=== PATIENT | female | born 1990 | race Two or more races ===

== ENCOUNTER 2019-01-11 22:09 | Emergency (ER) | payer SELFPAY ==
[~2019-01-11] VITALS: Ht 167.6 cm; Wt 65.8 kg
[2019-01-11 22:30] VITALS: BP 146/82
[2019-01-11 22:53] LABS: BASO % 1 % (0-3); EOS # 0.3 x10^3/uL (0.0-0.7); EOS % 4 % (0-3); LYMPH # 2.6 x10^3/uL (1.0-4.8); LYMPH % 40 % (24-48); MEAN CORPUSCULAR HEMOGLOBIN 30 pg (25-35); MEAN CORPUSCULAR HGB CONC 34 g/dL (31-37); MEAN CORPUSCULAR VOLUME 88 fL (79-100); MONO # 0.5 x10^3/uL (0.0-1.1); MONO % 7 % (0-9); NEUT # 3.1 x10^3/uL (1.8-7.7); NEUT % 48 % (31-73); PLATELET COUNT 221 x10^3/uL (140-400); RED BLOOD COUNT 3.75 x10^6/uL (3.50-5.40); RED CELL DISTRIBUTION WIDTH 13.7 % (11.5-14.5); WHITE BLOOD COUNT 6.5 x10^3/uL (4.0-11.0)
[2019-01-11 22:58] LABS: BILIRUBIN,URINE NEGATIVE (NEG); CLARITY,URINE CLEAR; COLOR,URINE YELLOW; NITRITE,URINE NEGATIVE (NEG); PROTEIN,URINE NEGATIVE (NEG-TRACE); UROBILINOGEN,URINE 0.2 mg/dL (0.2 mg/dL)
--- NOTE | 2019-01-11 23:05 | PHYS DOC ---
Adult General Chief Complaint Chief Complaint: VAGINAL BLEEDING HPI HPI Patient is a 28 year old Malay-speaking female 2 para 1 currently 20 weeks who presents to the ED today complaining of abdominal pain described as cramping and intermittent that began this evening. Patient denies anything specifically exacerbating or relieving the pain. She states she was [facility] yesterday and was informed she is 20 weeks . She is also complaining of vaginal bleeding that began with this pain. Denies any nausea or vomiting. Patient seems to grab her abdomen every few minutes due to pain. mentions having intercourse today before symptoms begun Interpretation was provided by and the use of [employer] japanese interpreter (NICKO MIRANDA APRN) Review of Systems Review of Systems Constitutional: Denies fever or chills [] Eyes: Denies change in visual acuity, redness, or eye pain [] HENT: Denies nasal congestion or sore throat [] Respiratory: Denies cough or shortness of breath [] Cardiovascular: No additional information not addressed in HPI [] GI: Reports abdominal pain in with vaginal bleeding, denies nausea, vomiting, bloody stools or diarrhea [] : Denies dysuria or hematuria [] Musculoskeletal: Denies back pain or joint pain [] Integument: Denies rash or skin lesions [] Neurologic: Denies headache, focal weakness or sensory changes [] All other systems were reviewed and found to be within normal limits, except as documented in this note. (NICKO MIRANDA APRN) Current Medications Current Medications Current Medications Medications (Trade) Dose Ordered Sig/Bella Start Time Stop Time Status Last Admin Dose Admin Acetaminophen (Tylenol) 1,000 mg 1X ONCE 01/12/19 00:30 01/12/19 00:48 DC (ENMANUEL GABRIEL MD) Allergies Allergies Allergies Coded Allergies Type Severity Reaction Last Updated Verified No Known Drug Allergies 01/12/19 No (ENMANUEL GABRIEL MD) Physical Exam Physical Exam Constitutional: Well developed, well nourished, no acute distress, non-toxic appearance. [] HENT: Normocephalic, atraumatic, bilateral external ears normal, oropharynx moist, no oral exudates, nose normal. [] Eyes: PERRLA, EOMI, conjunctiva normal, no discharge. [] Neck: Normal range of motion, no tenderness, supple, no stridor. [] Cardiovascular:Heart rate regular rhythm, no murmur [] Lungs & Thorax: Bilateral breath sounds clear to auscultation [] Abdomen: Gravid abdomen. Bowel sounds normal, soft, no tenderness, no masses, no pulsatile masses. [] Pelvic exam External pelvic region appears normal, cervix was visualized, closed, no CMT, trace amount of brownish discharge in the vaginal vault consistent with spotting, no adnexal tenderness. Skin: Warm, dry, no erythema, no rash. [] Back: No tenderness, no CVA tenderness. [] Extremities: No tenderness, no cyanosis, no clubbing, ROM intact, no edema. [] Neurologic: Alert and oriented X 3, normal motor function, normal sensory function, no focal deficits noted. [] Psychologic: Affect normal, judgement normal, mood normal. [] (NICKO MIRANDA APRN) Current Patient Data Vital Signs Vital Signs Date Time Temp Pulse Resp B/P (MAP) Pulse Ox O2 Delivery O2 Flow Rate FiO2 01/11/19 22:30 97.4 91 16 146/82 (103) 100 Room Air 97.4 (ENMANUEL GABRIEL MD) Lab Values Laboratory Tests Test 01/11/19 22:15 01/11/19 22:19 01/11/19 22:37 Urine Collection Type Void Urine Color Yellow Urine Clarity Clear Urine pH 7.0 Urine Specific [place] 1.010 Urine Protein Negative mg/dL (NEG-TRACE) Urine Glucose (UA) Negative mg/dL (NEG) Urine Ketones (Stick) Negative mg/dL (NEG) Urine Blood Moderate (NEG) Urine Nitrite Negative (NEG) Urine Bilirubin Negative (NEG) Urine Urobilinogen Dipstick 0.2 mg/dL (0.2 mg/dL) Urine Leukocyte Esterase Negative (NEG) Urine RBC 0 /HPF (0-2) Urine WBC Rare /HPF (0-4) Urine Squamous Epithelial Cells Few /LPF Urine Bacteria Few /HPF (0-FEW) Urine Opiates Screen Neg (NEG) Urine Methadone Screen Neg (NEG) Urine Barbiturates Neg (NEG) Urine Phencyclidine Screen Neg (NEG) Urine Amphetamine/Methamphetamine Neg (NEG) Urine Benzodiazepines Screen Neg (NEG) Urine Cocaine Screen Neg (NEG) Urine Cannabinoids Screen Neg (NEG) Urine Ethyl Alcohol Neg (NEG) POC Urine HCG, Qualitative Hcg positive (Negative) White Blood Count 6.5 x10^3/uL (4.0-11.0) Red Blood Count 3.75 x10^6/uL (3.50-5.40) Hemoglobin 11.0 g/dL (12.0-15.5) L Hematocrit 33.0 % (36.0-47.0) L Mean Corpuscular Volume 88 fL (79-100) Mean Corpuscular Hemoglobin 30 pg (25-35) Mean Corpuscular Hemoglobin Concent 34 g/dL (31-37) Red Cell Distribution Width 13.7 % (11.5-14.5) Platelet Count 221 x10^3/uL (140-400) Neutrophils (%) (Auto) 48 % (31-73) Lymphocytes (%) (Auto) 40 % (24-48) Monocytes (%) (Auto) 7 % (0-9) Eosinophils (%) (Auto) 4 % (0-3) H Basophils (%) (Auto) 1 % (0-3) Neutrophils # (Auto) 3.1 x10^3/uL (1.8-7.7) Lymphocytes # (Auto) 2.6 x10^3/uL (1.0-4.8) Monocytes # (Auto) 0.5 x10^3/uL (0.0-1.1) Eosinophils # (Auto) 0.3 x10^3/uL (0.0-0.7) Basophils # (Auto) 0.0 x10^3/uL (0.0-0.2) Maternal Serum HCG Beta Subunit 68421 mIU/mL (0-5) H Sodium Level 138 mmol/L (136-145) Potassium Level 3.4 mmol/L (3.5-5.1) L Chloride Level 104 mmol/L (98-107) Carbon Dioxide Level 26 mmol/L (21-32) Anion Gap 8 (6-14) Blood Urea Nitrogen 7 mg/dL (7-20) Creatinine 0.8 mg/dL (0.6-1.0) Estimated GFR (Cockcroft-Gault) 84.8 BUN/Creatinine Ratio 9 (6-20) Glucose Level 76 mg/dL (70-99) Calcium Level 8.8 mg/dL (8.5-10.1) Total Bilirubin 0.1 mg/dL (0.2-1.0) L Aspartate Amino Transferase (AST) 16 U/L (15-37) Alanine Aminotransferase (ALT) 27 U/L (14-59) Alkaline Phosphatase 70 U/L (46-116) Total Protein 7.3 g/dL (6.4-8.2) Albumin 3.4 g/dL (3.4-5.0) Albumin/Globulin Ratio 0.9 (1.0-1.7) L Ethyl Alcohol Level < 10 mg/dL (0-10) Laboratory Tests 01/11/19 22:37 Laboratory Tests 01/11/19 22:37 Microbiology 01/11/19 Wet Prep - Final, Complete (ENMANUEL GABRIEL MD) EKG EKG [] (NICKO MIRANDA APRN) Radiology/Procedures Radiology/Procedures []PROCEDURE: OB > 14 WKS W/TV Limited OB ultrasound greater than 14 weeks to include transabdominal and transvaginal imaging 01/11/2019 CLINICAL HISTORY: Second trimester with abdominal pain. TECHNIQUE: A limited real-time ultrasound examination of the gravid uterus was performed. Additional a transvaginal imaging evaluation of the cervix was performed. Multiple images were obtained. FINDINGS: There is a single living IUP. The fetus is in a variable position. cardiac and somatic activity is seen. heart rate is 157 beats per minutes. The CRL of the pole measures 8.95 cm. This corresponds to an estimated gestational age by ultrasound of 14 weeks 6 days plus or minus standard deviation of 8 days. The maternal cervix is closed. It measures 3.85 cm. The placenta is posterior. No definite abnormality of the placenta is seen. The amniotic fluid volume is within normal limits. The right ovary is normal in size and echogenicity. It measures 2.1 x 1.1 x 2.0 cm in size. The left ovary is not visualized. No adnexal mass is seen. No free fluid is noted. Detailed evaluation of anatomy was not performed due to the early age of this gestation. IMPRESSION: Single living IUP with an estimated gestational age by ultrasound of 14 weeks 6 days plus or minus a standard deviation of 8 days. Electronically signed by: Roni Escobedo MD (01/12/2019 12:10 AM) [facility] DICTATED and SIGNED BY: RONI ESCOBEDO MD DATE: 01/12/19 0010 (NICKO MIRANDA APRN) Course & Med Decision Making Course & Med Decision Making Pertinent Labs and Imaging studies reviewed. (See chart for details) This is a 28-year-old female patient 2 para 1 currently 20 weeks presenting today with abdominal pain and vaginal bleeding that began this afternoon. On physical exam trace amount of spotting was noted. CBC with normal WBC, hemoglobin 11.0, hematocrit 33.0, CMP-no acute findings, urine analysis is negative for infection, beta-hCG 28,838. Blood group O+ Wet prep noted for clue cells-D/c on Flagy OB ultrasound noted for Single living IUP with an estimated gestational age by ultrasound of 14 weeks 6 days plus or minus a standard deviation of 8 days. Patient was discharged home, instructed to maintain bed rest and pelvic rest. Instructed to return to the ED at any point symptoms worsen. Tylenol recommended for pain. Follow-up with her own ESTATE ATTORNEY on the provided ESTATE ATTORNEY in the course of next week (NICKO MIRANDA APRN) Course & Med Decision Making Staff Physician Addendum: I was working in the ER during the course of this patient's visit. I was available for consultation as needed, but I was not directly involved in the care of this patient. (ENMANUEL GABRIEL MD) Dragon Disclaimer Dragon Disclaimer This electronic medical record was generated, in whole or in part, using a voice recognition dictation system. (NICKO MIRANDA APRN) Departure Departure Impression: Primary Impression: Abdominal pain in Additional Impressions: Threatened miscarriage Bacterial vaginosis Disposition: 01 HOME, SELF-CARE Condition: STABLE Referrals: GENEVIEVE DHALIWAL MD Follow up with the provided ESTATE ATTORNEY or your own ESTATE ATTORNEY next week Patient Instructions: Bacterial Vaginosis, [id number], Threatened Miscarriage Additional Instructions: You were evaluated in the emergency room for abdominal pain and vaginal bleeding in . Your ultrasound shows you're 14 weeks 6 days . You have bacterial vaginosis, we put you on antibiotics for this, ensure you complete them. Maintain bedrest, no sex, no strenuous activities until you're seen by your own doctor or the provided ESTATE ATTORNEY in the course of next week, come back to the ED today point symptoms worsen. Scripts Metronidazole (FLAGYL) 500 Mg Tablet 1 TAB PO BID, #14 TAB Prov: NICKO MIRANDA APRN 01/12/19 Problem Qualifiers Primary Impression: Abdominal pain in Trimester: second trimester Qualified Codes: O26.892 - Other specified related conditions, second trimester; R10.9 - Unspecified abdominal pain NICKO MIRANDA APRN Jan 11, 2019 23:05 ENMANUEL GABRIEL MD Jan 13, 2019 05:27
[2019-01-11 23:12] LABS: CALCIUM 8.8 mg/dL (8.5-10.1); CREATININE 0.8 mg/dL (0.6-1.0); GFR 84.8; POTASSIUM 3.4 mmol/L (3.5-5.1)
[2019-01-11 23:17] LABS: ALBUMIN 3.4 g/dL (3.4-5.0); ALBUMIN/GLOBULIN RATIO 0.9 (1.0-1.7); TOTAL BILIRUBIN 0.1 mg/dL (0.2-1.0); TOTAL PROTEIN 7.3 g/dL (6.4-8.2)
[2019-01-11 23:18] LABS: BACTERIA,URINE FEW /HPF (0-FEW); RBC,URINE 0 /HPF (0-2); SQUAMOUS EPITHELIAL CELL,UR FEW /LPF; WBC,URINE RARE /HPF (0-4)
[2019-01-11 23:32] LABS: AMPHETAMINE/METHAMPHETAMINE NEG (NEG); BARBITURATES NEG (NEG); BENZODIAZEPINES NEG (NEG); CANNABINOIDS NEG (NEG); COCAINE NEG (NEG); METHADONE NEG (NEG); OPIATES NEG (NEG); PHENCYCLIDINE NEG (NEG)
--- NOTE | 2019-01-12 00:13 | RAD ---
Limited OB ultrasound greater than 14 weeks to include transabdominal and transvaginal imaging 01/11/2019 CLINICAL HISTORY: Second trimester with abdominal pain. TECHNIQUE: A limited real-time ultrasound examination of the gravid uterus was performed. Additional a transvaginal imaging evaluation of the cervix was performed. Multiple images were obtained. FINDINGS: There is a single living IUP. The fetus is in a variable position. cardiac and somatic activity is seen. heart rate is 157 beats per minutes. The CRL of the pole measures 8.95 cm. This corresponds to an estimated gestational age by ultrasound of 14 weeks 6 days plus or minus standard deviation of 8 days. The maternal cervix is closed. It measures 3.85 cm. The placenta is posterior. No definite abnormality of the placenta is seen. The amniotic fluid volume is within normal limits. The right ovary is normal in size and echogenicity. It measures 2.1 x 1.1 x 2.0 cm in size. The left ovary is not visualized. No adnexal mass is seen. No free fluid is noted. Detailed evaluation of anatomy was not performed due to the early age of this gestation. IMPRESSION: Single living IUP with an estimated gestational age by ultrasound of 14 weeks 6 days plus or minus a standard deviation of 8 days. Electronically signed by: Rnoi Escobedo MD (01/12/2019 12:10 AM) [facility]
[2019-01-12] MEDS ORDERED: METR500T PO (00:20)
[2019-01-12] MEDS ORDERED: ACETAMINOPHEN 500 MG TABLET PO ONE (00:30)
[2019-01-15 17:13] LABS: GC PROBE Negative (Negative)
== END 2019-01-12 00:37 | disposition home or self-care (01) ==
LOC: ER 01-12 00:01
DX: O20.0 Threatened abortion (principal); O23.592 Infection of other part of genital tract in pregnancy, second trimester; B96.89 Other specified bacterial agents as the cause of diseases classified elsewhere; R10.9 Unspecified abdominal pain; Z3A.14 14 weeks gestation of pregnancy
CPT/HCPCS: 76805; 76817; 80053; 80307; 81001; 81025; 84702; 85025; 86850; 86900; 86901; 87491; 87591; 99285; G0480; Q0111; 36415

== ENCOUNTER 2019-07-05 09:39 | Observation (INO) | payer SELFPAY ==
[~2019-07-05] VITALS: Ht 160 cm; Wt 95.7 kg
[~2019-07-05 09:39] MED LIST: METR500T PO
[2019-07-05] MEDS ORDERED: IV RINGERS,LACTATED 1000ML 1,000 ML IV SCH (10:02)
[2019-07-05 10:32] LABS: BILIRUBIN,URINE NEGATIVE (NEG); CLARITY,URINE CLEAR; COLOR,URINE YELLOW; NITRITE,URINE NEGATIVE (NEG); PH,URINE 6.5; PROTEIN,URINE NEGATIVE (NEG-TRACE); UROBILINOGEN,URINE 0.2 mg/dL (0.2 mg/dL)
[2019-07-05 10:33] LABS: BACTERIA,URINE MANY /HPF (0-FEW); RBC,URINE OCC /HPF (0-2); SQUAMOUS EPITHELIAL CELL,UR MOD /LPF
== END 2019-07-05 15:24 | disposition home or self-care (01) ==
LOC: 3 SO LND 09:39
PROVIDERS: ADMIT Obstetrics & Gynecology; ATTEND Obstetrics & Gynecology
DX: O26.893 Other specified pregnancy related conditions, third trimester (principal); R10.30 Lower abdominal pain, unspecified; Z3A.38 38 weeks gestation of pregnancy
CPT/HCPCS: 81001; 87086; G0378; G0379; J7120

== ENCOUNTER 2019-07-08 06:37 | Inpatient (IN) | payer SELFPAY ==
[~2019-07-08] VITALS: Ht 160 cm; Wt 96.8 kg
[2019-07-08] MEDS ORDERED: CITRIC ACID/SODIUM CITRATE 30 ML SOLUTION. PO ONE (07:00)
[2019-07-08] MEDS ORDERED: IV RINGERS,LACTATED 1000ML 1,000 ML IV SCH (07:00)
[2019-07-08 07:55] LABS: BASO % 0 % (0-3); EOS # 0.1 x10^3/uL (0.0-0.7); EOS % 2 % (0-3); HEMATOCRIT 33.7 % (36.0-47.0); HEMOGLOBIN 11.2 g/dL (12.0-15.5); LYMPH # 1.9 x10^3/uL (1.0-4.8); LYMPH % 36 % (24-48); MEAN CORPUSCULAR HEMOGLOBIN 28 pg (25-35); MEAN CORPUSCULAR HGB CONC 33 g/dL (31-37); MEAN CORPUSCULAR VOLUME 85 fL (79-100); MONO # 0.3 x10^3/uL (0.0-1.1); MONO % 6 % (0-9); NEUT % 56 % (31-73); PLATELET COUNT 240 x10^3/uL (140-400); RED BLOOD COUNT 3.98 x10^6/uL (3.50-5.40); RED CELL DISTRIBUTION WIDTH 13.5 % (11.5-14.5); WHITE BLOOD COUNT 5.4 x10^3/uL (4.0-11.0)
[2019-07-08 08:40] VITALS: BP 117/73
[2019-07-08] MEDS: IV RINGERS,LACTATED 1000ML 1,000 ML IV SCH ×2 (08:50→17:19)
[2019-07-08] MEDS ORDERED: ePHEDrine PF IN SALINE 50 MG/10 ML SYRINGE. IV ONE (09:47)
[2019-07-08] MEDS ORDERED: PHENYLEPHRINE in 0.9% NACL PF 1 MG/10 ML SYRINGE. IV ONE (09:47)
[2019-07-08] MEDS ORDERED: OXYTOCIN 10 UNIT/ML VIAL. ONE (09:47)
[2019-07-08] MEDS ORDERED: METOCLOPRAMIDE HCL 10 MG/2 ML VIAL. ONE (09:48)
[2019-07-08] MEDS ORDERED: ONDANSETRON PF 4 MG/2 ML VIAL. ONE (09:48)
[2019-07-08] MEDS ORDERED: FAMOTIDINE 20 MG/2 ML VIAL ONE (09:48)
[2019-07-08] MEDS ORDERED: fentaNYL PF VIAL 100 MCG/2 ML VIAL ONE (09:49)
[2019-07-08] MEDS ORDERED: MORPHINE PF 10 MG/10 ML AMPUL. ONE (09:49)
[2019-07-08 10:59] LABS: BILIRUBIN,URINE NEGATIVE (NEG); COLOR,URINE YELLOW; NITRITE,URINE NEGATIVE (NEG); PH,URINE 6.5; PROTEIN,URINE NEGATIVE (NEG-TRACE); UROBILINOGEN,URINE 0.2 mg/dL (0.2 mg/dL)
[2019-07-08 11:11] LABS: BACTERIA,URINE MANY /HPF (0-FEW); CLARITY,URINE HAZY; SQUAMOUS EPITHELIAL CELL,UR MANY /LPF
[2019-07-08 11:12] LABS: RBC,URINE RARE /HPF (0-2)
--- NOTE | 2019-07-08 12:12 | PDOC1 ---
OB - History Hx of Present Care: Good Care Ultrasounds: Normal mid trimester US Obstetrical Complications: None Medical Complications: None Past Family/Social History * Past Medical, Surgical, Family and Obstetric Histories reviewed from chart. Rubella: Immune RPR/VDRL: Negative GBS Status: Negative HBsAG: Negative OB - Chief Complaint & HPI Date of Admission: Date of Admission: Jul 08, 2019 at 06:37 Chief Complaint/History : 2 Para: 1 EGA: 39 Reason for admission: section Indication for : desires repeat Admission Nurse Assessment Rev: Yes OB - Admission Exam Physical Exam Vitals: VS - Last 72 Hours, by Label Date Time Temp Pulse Resp B/P (MAP) Pulse Ox O2 Delivery O2 Flow Rate FiO2 07/08/19 08:40 97.7 83 16 117/73 (88) Room Air 97.7 HEENT: Normal Heart: Regular Rate Lungs: Clear Abdomen: Gravid, Non tender, Soft Extremities: Edema Reflexes: Normal Cervical Dilatation: Fingertip Effacement: 25% Station: -3 Membranes: Intact Heart Rate: Normal Accelerations: Accelerations Present Decelerations: No decelerations Contractions on Admission: >10 Minutes Apart Intensity: Mild Text A: 39 wks IUP Previous c/s P: Admit for repeat c/s. JOVANY BEARD Jr, MD Jul 08, 2019 12:12
--- NOTE | 2019-07-08 12:25 | PDOC4 ---
OB Operative Note Date: Jul 08, 2019 PRE OP DIAGNOSIS: Previoujs C- section POST OP DIAGNOSIS: Previous C- section OPERATION PERFORMED: R [facility] Surgeon Dr. Lowe Anesthesia: Regional (Spinal) Blood Loss 600 ml Specimen placenta and OB Findings: Position (Vertex), Sex (Female), (8/9), Weight (3085 Gram), Fluid (Meconium) Complications none Additional Remarks pt. stable JOVANY LOWE Jr, MD Jul 08, 2019 12:25
[2019-07-08] MEDS ORDERED: miSOPROStol 200 MCG TABLET ONE (12:26)
[2019-07-08] MEDS ORDERED: OXYTOCIN 30 UNIT/500 ML PREMIX 500 ML IV PRN (12:30)
[2019-07-08] MEDS ORDERED: 0.9 % SODIUM CHLORIDE 10 ML DISP.SYRIN. IV PRN (12:30)
[2019-07-08] MEDS ORDERED: diphenhydrAMINE ORAL ELIXIR 12.5 MG/5 ML ML PO PRN (12:30)
[2019-07-08] MEDS ORDERED: ZOLPIDEM 5 MG TABLET. PO PRN (12:30)
[2019-07-08] MEDS ORDERED: MAG HYDROX/ALUMINUM HYD/SIMETH 30 ML ORAL.SUSP PO PRN (12:30)
[2019-07-08] MEDS ORDERED: ONDANSETRON PF 4 MG/2 ML VIAL. IV PRN (12:30)
--- NOTE | 2019-07-08 13:00 | OP ---
DATE OF SURGERY: 07/08/2019 PREOPERATIVE DIAGNOSES: 1. A 39 weeks intrauterine . 2. Previous section. POSTOPERATIVE DIAGNOSES: 1. A 39 weeks intrauterine . 2. Previous section. PROCEDURE: Repeat low transverse section. SURGEON: Jovany Lowe MD ANESTHESIA: Spinal. ESTIMATED BLOOD LOSS: 600 mL. COMPLICATIONS: None. FINDINGS: Viable female , Apgars 8 and 9, weight 3085 grams. Three-vessel cord placenta delivered manually. Light meconium stained amniotic fluid. SUMMARY: A 29-year-old 2, para 1 at 39 weeks, presented for repeat section. She was counseled on the risks, benefits and expectations and voiced a clear understanding to proceed. DESCRIPTION OF PROCEDURE: The patient was taken to surgery suite and placed in dorsal supine position. She was prepped with ChloraPrep and draped in sterile fashion. After adequate anesthesia, Pfannenstiel skin incision was made with scalpel down to and through the fascia. Fascia was extended laterally using curved Smiley scissors. The superior edge of the fascia was grasped with 2 Merly clamps and dissected free of the abdominal rectus muscles using blunt dissection along with Bovie cautery. The same process took place inferiorly. The abdominal rectus muscles were dissected bluntly at the midline using blunt dissection. Two hemostats were placed on the peritoneum. The peritoneum was incised with Metzenbaum scissors. This excision was extended superiorly as well as inferiorly. The Jaziel ring retractor was placed. A low transverse hysterotomy incision was made down to the amniotic sac. Hysterotomy incision was extended laterally and vertically digitally. Amniotomy was performed with Allis clamp, which elicited a moderate amount of meconium stained amniotic fluid. With the aid of fundal pressure, the infant's head was delivered in a smooth atraumatic manner. With additional fundal pressure, the anterior shoulder was delivered followed by posterior shoulder and rest of female infant was delivered. The infant was suctioned with bulb syringe orally and nasally, umbilical cord was clamped twice and cut and viable female infant was handed to waiting nursing staff. Umbilical cord blood was then obtained. Three-vessel cord placenta was delivered manually. The uterus was then exteriorized and cleared of clot and debris with a moist lap. The hysterotomy incision was reapproximated using #1 Vicryl suture in running locked fashion and imbricated layer of #1 Vicryl suture in a running fashion was utilized for better hemostasis. Uterus palpated firm. Fallopian tubes and ovaries appeared normal bilaterally. Posterior cul-de-sac was cleared of clot and debris with moist lap. The uterus was then returned to the abdomen. Pericolic gutters were cleared of clot and debris with a moist lap. The hysterotomy incision was reviewed and was hemostatic. The Jaziel ring retractor was removed. The peritoneum was reapproximated using #1 Vicryl suture in a running fashion. The abdominal rectus muscles were reapproximated using #1 Vicryl suture in an interrupted fashion. Fascia was reapproximated using Stratafix in running fashion. Skin was reapproximated using 4-0 Vicryl suture in subcuticular manner. The patient tolerated the procedure well and was taken to recovery room in stable condition. Sponge and needle count correct x 3. JOVANY LOWE MD DR: ARETHA/juan JOB#: [id number] / [id number]
[2019-07-08] MEDS ORDERED: diphenhydrAMINE 50 MG/ML VIAL IVP PRN (13:15)
[2019-07-08] MEDS: KETOROLAC 30 MG/ML VIAL. IV PRN ×2 (14:44→20:51)
[2019-07-08 16:23] VITALS: BP 106/60
[2019-07-08] MEDS: FERROUS SULFATE 325 MG TABLET. PO SCH (17:00)
[2019-07-08 17:10] VITALS: BP 112/58
[2019-07-08] MEDS ORDERED: KETOROLAC 30 MG/ML VIAL. IV PRN (18:45)
[2019-07-08] MEDS: DOCUSATE SODIUM 100 MG CAPSULE. PO PRN (20:51)
[2019-07-08 21:19] VITALS: BP 103/55
[2019-07-09] MEDS: IV RINGERS,LACTATED 1000ML 1,000 ML IV SCH ×4 (01:29→23:00)
[2019-07-09 01:30] VITALS: BP 86/67
[2019-07-09] MEDS: KETOROLAC 30 MG/ML VIAL. IV PRN (04:52)
[2019-07-09 05:08] LABS: BASO % 0 % (0-3); EOS # 0.1 x10^3/uL (0.0-0.7); EOS % 2 % (0-3); HEMATOCRIT 28.3 % (36.0-47.0); HEMOGLOBIN 9.4 g/dL (12.0-15.5); LYMPH # 1.7 x10^3/uL (1.0-4.8); LYMPH % 28 % (24-48); MEAN CORPUSCULAR HEMOGLOBIN 28 pg (25-35); MEAN CORPUSCULAR HGB CONC 33 g/dL (31-37); MEAN CORPUSCULAR VOLUME 86 fL (79-100); MONO # 0.4 x10^3/uL (0.0-1.1); MONO % 7 % (0-9); NEUT # 3.8 x10^3/uL (1.8-7.7); NEUT % 63 % (31-73); PLATELET COUNT 200 x10^3/uL (140-400); RED BLOOD COUNT 3.31 x10^6/uL (3.50-5.40)
[2019-07-09 05:50] VITALS: BP 104/59
[2019-07-09] MEDS: FERROUS SULFATE 325 MG TABLET. PO SCH ×2 (07:11→17:43)
[2019-07-09] MEDS: SIMETHICONE 80 MG TAB.CHEW PO PRN ×2 (07:11→17:43)
[2019-07-09] MEDS: DOCUSATE SODIUM 100 MG CAPSULE. PO PRN ×2 (07:11→17:43)
[2019-07-09] MEDS: oxyCODONE/APAP 5/325 1 TAB TABLET PO PRN ×3 (07:12→17:43)
--- NOTE | 2019-07-09 07:36 | PDOC ---
OB Progress Note Date of Service 07/09/19 Time of Evaluation 0735 Notes Pt. feeling well. Pain controlled. No complaints. Lab Laboratory Tests Test 07/08/19 07:16 07/08/19 07:25 07/09/19 04:50 Urine Collection Type Unknown Urine Color Yellow Urine Clarity Hazy Urine pH 6.5 Urine Specific [place] 1.010 Urine Protein Negative mg/dL (NEG-TRACE) Urine Glucose (UA) Negative mg/dL (NEG) Urine Ketones (Stick) Negative mg/dL (NEG) Urine Blood Negative (NEG) Urine Nitrite Negative (NEG) Urine Bilirubin Negative (NEG) Urine Urobilinogen Dipstick 0.2 mg/dL (0.2 mg/dL) Urine Leukocyte Esterase Moderate (NEG) Urine RBC Rare /HPF (0-2) Urine WBC 11-20 /HPF (0-4) Urine Squamous Epithelial Cells Many /LPF Urine Bacteria Many /HPF (0-FEW) White Blood Count 5.4 x10^3/uL (4.0-11.0) 6.0 x10^3/uL (4.0-11.0) Red Blood Count 3.98 x10^6/uL (3.50-5.40) 3.31 x10^6/uL (3.50-5.40) Hemoglobin 11.2 g/dL (12.0-15.5) 9.4 g/dL (12.0-15.5) Hematocrit 33.7 % (36.0-47.0) 28.3 % (36.0-47.0) Mean Corpuscular Volume 85 fL (79-100) 86 fL (79-100) Mean Corpuscular Hemoglobin 28 pg (25-35) 28 pg (25-35) Mean Corpuscular Hemoglobin Concent 33 g/dL (31-37) 33 g/dL (31-37) Red Cell Distribution Width 13.5 % (11.5-14.5) 14.0 % (11.5-14.5) Platelet Count 240 x10^3/uL (140-400) 200 x10^3/uL (140-400) Neutrophils (%) (Auto) 56 % (31-73) 63 % (31-73) Lymphocytes (%) (Auto) 36 % (24-48) 28 % (24-48) Monocytes (%) (Auto) 6 % (0-9) 7 % (0-9) Eosinophils (%) (Auto) 2 % (0-3) 2 % (0-3) Basophils (%) (Auto) 0 % (0-3) 0 % (0-3) Neutrophils # (Auto) 3.0 x10^3/uL (1.8-7.7) 3.8 x10^3/uL (1.8-7.7) Lymphocytes # (Auto) 1.9 x10^3/uL (1.0-4.8) 1.7 x10^3/uL (1.0-4.8) Monocytes # (Auto) 0.3 x10^3/uL (0.0-1.1) 0.4 x10^3/uL (0.0-1.1) Eosinophils # (Auto) 0.1 x10^3/uL (0.0-0.7) 0.1 x10^3/uL (0.0-0.7) Basophils # (Auto) 0.0 x10^3/uL (0.0-0.2) 0.0 x10^3/uL (0.0-0.2) Treponema pallidum Antibody Nonreactive (Nonreactive) Laboratory Tests Test 07/09/19 04:50 White Blood Count 6.0 x10^3/uL (4.0-11.0) Red Blood Count 3.31 x10^6/uL (3.50-5.40) Hemoglobin 9.4 g/dL (12.0-15.5) Hematocrit 28.3 % (36.0-47.0) Mean Corpuscular Volume 86 fL (79-100) Mean Corpuscular Hemoglobin 28 pg (25-35) Mean Corpuscular Hemoglobin Concent 33 g/dL (31-37) Red Cell Distribution Width 14.0 % (11.5-14.5) Platelet Count 200 x10^3/uL (140-400) Neutrophils (%) (Auto) 63 % (31-73) Lymphocytes (%) (Auto) 28 % (24-48) Monocytes (%) (Auto) 7 % (0-9) Eosinophils (%) (Auto) 2 % (0-3) Basophils (%) (Auto) 0 % (0-3) Neutrophils # (Auto) 3.8 x10^3/uL (1.8-7.7) Lymphocytes # (Auto) 1.7 x10^3/uL (1.0-4.8) Monocytes # (Auto) 0.4 x10^3/uL (0.0-1.1) Eosinophils # (Auto) 0.1 x10^3/uL (0.0-0.7) Basophils # (Auto) 0.0 x10^3/uL (0.0-0.2) Medications Current Medications Ringer's Solution 1,000 ml @ 1,000 mls/hr Q1H IV Last administered on 07/08/19at 08:49; Start 07/08/19 at 07:00; Stop 07/08/19 at 07:59; Status DC Ringer's Solution 1,000 ml @ 125 mls/hr Q8H IV Last administered on 07/09/19at 01:29; Start 07/08/19 at 07:00 Cefazolin Sodium/ Dextrose 50 ml @ 100 mls/hr 1X ONCE IV Last administered on 07/08/19at 08:49; Start 07/08/19 at 07:00; Stop 07/08/19 at 16:42; Status DC Citric Acid/ Sodium Citrate (Bicitra) 30 ml 1X ONCE PO Last administered on 07/08/19at 08:49; Start 07/08/19 at 07:00; Stop 07/08/19 at 16:43; Status DC Ephedrine Sulfate (ePHEDrine PF IN SALINE SYRINGE) 50 mg STK-MED ONCE IV ; Start 07/08/19 at 09:47; Stop 07/08/19 at 09:48; Status DC Phenylephrine HCl (PHENYLEPHRINE in 0.9% NACL PF) 1 mg STK-MED ONCE IV ; Start 07/08/19 at 09:47; Stop 07/08/19 at 09:48; Status DC Oxytocin (Pitocin) 10 unit STK-MED ONCE .ROUTE ; Start 07/08/19 at 09:47; Stop 07/08/19 at 09:48; Status DC Ondansetron HCl (Zofran) 4 mg STK-MED ONCE .ROUTE ; Start 07/08/19 at 09:48; Stop 07/08/19 at 09:49; Status DC Famotidine (Pepcid Vial) 20 mg STK-MED ONCE .ROUTE ; Start 07/08/19 at 09:48; Stop 07/08/19 at 09:49; Status DC Metoclopramide HCl (Reglan Vial) 10 mg STK-MED ONCE .ROUTE ; Start 07/08/19 at 09:48; Stop 07/08/19 at 09:49; Status DC Morphine Sulfate (Morphine Preservative Free) 10 mg STK-MED ONCE .ROUTE ; Start 07/08/19 at 09:49; Stop 07/08/19 at 09:49; Status DC Fentanyl Citrate (Fentanyl 2ml Vial) 100 mcg STK-MED ONCE .ROUTE ; Start 07/08/19 at 09:49; Stop 07/08/19 at 09:49; Status DC Sodium Chloride (Normal Saline Flush) 3 ml QSHIFT PRN IV AFTER MEDS AND BLOOD DRAWS; Start 07/08/19 at 12:30 Oxytocin/Sodium Chloride 500 ml @ 125 mls/hr CONT PRN IV EXCESSIVE POST- BLEEDING; Start 07/08/19 at 12:30; Stop 07/08/19 at 20:29; Status DC Ibuprofen (Motrin) 800 mg PRN Q8HRS PRN PO INFLAMMATION; Start 07/08/19 at 12:30 Ondansetron HCl (Zofran) 4 mg PRN Q6HRS PRN IV NAUSEA/VOMITING; Start 07/08/19 at 12:30 Docusate Sodium (Colace) 100 mg PRN BID PRN PO CONSTIPATION Last administered on 07/09/19at 07:11; Start 07/08/19 at 12:30 Al Hydroxide/Mg Hydroxide (Mylanta Plus Xs) 30 ml PRN Q4HRS PRN PO HEARTBURN / GAS; Start 07/08/19 at 12:30 Simethicone (Gas-X) 80 mg PRN AFTMEALHC PRN PO GAS / BLOATING Last administered on 07/09/19at 07:11; Start 07/08/19 at 12:30 Diphenhydramine HCl (Benadryl Oral Elixir) 12.5 mg PRN Q6HRS PRN PO ITCHING Last administered on 07/08/19at 20:51; Start 07/08/19 at 12:30 Ferrous Sulfate (Feosol) 325 mg BIDWMEALS PO Last administered on 07/09/19at 07:11; Start 07/08/19 at 17:00 Zolpidem Tartrate (Ambien) 5 mg PRN QHS PRN PO INSOMNIA, MAY REPEAT X1; Start 07/08/19 at 12:30 Oxycodone/ Acetaminophen (Percocet 5/325) 2 tab PRN Q4HRS PRN PO MODERATE PAIN, SEVERE PAIN Last administered on 07/09/19at 07:12; Start 07/08/19 at 12:30 Ketorolac Tromethamine (Toradol 30mg Vial) 30 mg PRN Q6HRS PRN IV PAIN Last administered on 07/09/19at 04:52; Start 07/08/19 at 12:30; Stop 07/13/19 at 12:29 Misoprostol (Cytotec 200mcg Tab) 200 mcg STK-MED ONCE .ROUTE ; Start 07/08/19 at 12:26; Stop 07/08/19 at 12:26; Status DC Diphenhydramine HCl (Benadryl) 12.5 mg PRN Q6HRS PRN IVP ITCHING; Start 07/08/19 at 13:15 Ketorolac Tromethamine (Toradol 30mg Vial) 30 mg PRN Q6HRS PRN IV PAIN; Start 07/08/19 at 18:45; Stop 07/13/19 at 18:44; Status UNV Active Scripts Active Flagyl (Metronidazole) 500 Mg Tablet 1 Tab PO BID Exam Abd: soft, mild tenderness, fundus firm Incision site: clean, dry and intact Assessment A: POD#1 s/p repeat c/s Plan of Care: Continue current Tx, Mgmt JOVANY BEARD Jr, MD Jul 09, 2019 07:36
[2019-07-09] MEDS: IBUPROFEN 400 MG TABLET. PO PRN ×2 (12:37→21:14)
[2019-07-09 15:15] VITALS: BP 104/65
[2019-07-09 18:31] VITALS: BP 106/55
[2019-07-09 21:05] VITALS: BP 96/57
[2019-07-10] MEDS: oxyCODONE/APAP 5/325 1 TAB TABLET PO PRN ×5 (02:09→21:58)
[2019-07-10 06:00] VITALS: BP 105/67
[2019-07-10] MEDS: DOCUSATE SODIUM 100 MG CAPSULE. PO PRN ×3 (06:04→15:49)
[2019-07-10] MEDS: IBUPROFEN 400 MG TABLET. PO PRN ×3 (06:05→21:57)
[2019-07-10] MEDS: FERROUS SULFATE 325 MG TABLET. PO SCH ×2 (08:15→18:43)
--- NOTE | 2019-07-10 08:33 | PDOC ---
OB Progress Note Date of Service 07/10/19 Time of Evaluation 0830 Notes Pt. feeling well. No complaints. Lab Laboratory Tests Test 07/09/19 04:50 White Blood Count 6.0 x10^3/uL (4.0-11.0) Red Blood Count 3.31 x10^6/uL (3.50-5.40) Hemoglobin 9.4 g/dL (12.0-15.5) Hematocrit 28.3 % (36.0-47.0) Mean Corpuscular Volume 86 fL (79-100) Mean Corpuscular Hemoglobin 28 pg (25-35) Mean Corpuscular Hemoglobin Concent 33 g/dL (31-37) Red Cell Distribution Width 14.0 % (11.5-14.5) Platelet Count 200 x10^3/uL (140-400) Neutrophils (%) (Auto) 63 % (31-73) Lymphocytes (%) (Auto) 28 % (24-48) Monocytes (%) (Auto) 7 % (0-9) Eosinophils (%) (Auto) 2 % (0-3) Basophils (%) (Auto) 0 % (0-3) Neutrophils # (Auto) 3.8 x10^3/uL (1.8-7.7) Lymphocytes # (Auto) 1.7 x10^3/uL (1.0-4.8) Monocytes # (Auto) 0.4 x10^3/uL (0.0-1.1) Eosinophils # (Auto) 0.1 x10^3/uL (0.0-0.7) Basophils # (Auto) 0.0 x10^3/uL (0.0-0.2) Medications Current Medications Ringer's Solution 1,000 ml @ 1,000 mls/hr Q1H IV Last administered on 07/08/19at 08:49; Start 07/08/19 at 07:00; Stop 07/08/19 at 07:59; Status DC Ringer's Solution 1,000 ml @ 125 mls/hr Q8H IV Last administered on 07/09/19at 01:29; Start 07/08/19 at 07:00; Stop 07/10/19 at 00:43; Status DC Cefazolin Sodium/ Dextrose 50 ml @ 100 mls/hr 1X ONCE IV Last administered on 07/08/19at 08:49; Start 07/08/19 at 07:00; Stop 07/08/19 at 16:42; Status DC Citric Acid/ Sodium Citrate (Bicitra) 30 ml 1X ONCE PO Last administered on 07/08/19at 08:49; Start 07/08/19 at 07:00; Stop 07/08/19 at 16:43; Status DC Ephedrine Sulfate (ePHEDrine PF IN SALINE SYRINGE) 50 mg STK-MED ONCE IV ; Start 07/08/19 at 09:47; Stop 07/08/19 at 09:48; Status DC Phenylephrine HCl (PHENYLEPHRINE in 0.9% NACL PF) 1 mg STK-MED ONCE IV ; Start 07/08/19 at 09:47; Stop 07/08/19 at 09:48; Status DC Oxytocin (Pitocin) 10 unit STK-MED ONCE .ROUTE ; Start 07/08/19 at 09:47; Stop 07/08/19 at 09:48; Status DC Ondansetron HCl (Zofran) 4 mg STK-MED ONCE .ROUTE ; Start 07/08/19 at 09:48; Stop 07/08/19 at 09:49; Status DC Famotidine (Pepcid Vial) 20 mg STK-MED ONCE .ROUTE ; Start 07/08/19 at 09:48; Stop 07/08/19 at 09:49; Status DC Metoclopramide HCl (Reglan Vial) 10 mg STK-MED ONCE .ROUTE ; Start 07/08/19 at 09:48; Stop 07/08/19 at 09:49; Status DC Morphine Sulfate (Morphine Preservative Free) 10 mg STK-MED ONCE .ROUTE ; Start 07/08/19 at 09:49; Stop 07/08/19 at 09:49; Status DC Fentanyl Citrate (Fentanyl 2ml Vial) 100 mcg STK-MED ONCE .ROUTE ; Start 07/08/19 at 09:49; Stop 07/08/19 at 09:49; Status DC Sodium Chloride (Normal Saline Flush) 3 ml QSHIFT PRN IV AFTER MEDS AND BLOOD DRAWS; Start 07/08/19 at 12:30 Oxytocin/Sodium Chloride 500 ml @ 125 mls/hr CONT PRN IV EXCESSIVE POST- BLEEDING; Start 07/08/19 at 12:30; Stop 07/08/19 at 20:29; Status DC Ibuprofen (Motrin) 800 mg PRN Q8HRS PRN PO INFLAMMATION Last administered on 07/10/19at 06:05; Start 07/08/19 at 12:30 Ondansetron HCl (Zofran) 4 mg PRN Q6HRS PRN IV NAUSEA/VOMITING; Start 07/08/19 at 12:30 Docusate Sodium (Colace) 100 mg PRN BID PRN PO CONSTIPATION Last administered on 07/10/19at 06:04; Start 07/08/19 at 12:30 Al Hydroxide/Mg Hydroxide (Mylanta Plus Xs) 30 ml PRN Q4HRS PRN PO HEARTBURN / GAS; Start 07/08/19 at 12:30 Simethicone (Gas-X) 80 mg PRN AFTMEALHC PRN PO GAS / BLOATING Last administered on 07/09/19at 17:43; Start 07/08/19 at 12:30 Diphenhydramine HCl (Benadryl Oral Elixir) 12.5 mg PRN Q6HRS PRN PO ITCHING Last administered on 07/08/19at 20:51; Start 07/08/19 at 12:30 Ferrous Sulfate (Feosol) 325 mg BIDWMEALS PO Last administered on 07/10/19at 08:15; Start 07/08/19 at 17:00 Zolpidem Tartrate (Ambien) 5 mg PRN QHS PRN PO INSOMNIA, MAY REPEAT X1; Start 07/08/19 at 12:30 Oxycodone/ Acetaminophen (Percocet 5/325) 2 tab PRN Q4HRS PRN PO MODERATE PAIN, SEVERE PAIN Last administered on 07/10/19at 02:09; Start 07/08/19 at 12:30 Ketorolac Tromethamine (Toradol 30mg Vial) 30 mg PRN Q6HRS PRN IV PAIN Last administered on 07/09/19at 04:52; Start 07/08/19 at 12:30; Stop 07/13/19 at 12:29 Misoprostol (Cytotec 200mcg Tab) 200 mcg STK-MED ONCE .ROUTE ; Start 07/08/19 at 12:26; Stop 07/08/19 at 12:26; Status DC Diphenhydramine HCl (Benadryl) 12.5 mg PRN Q6HRS PRN IVP ITCHING; Start 07/08/19 at 13:15 Ketorolac Tromethamine (Toradol 30mg Vial) 30 mg PRN Q6HRS PRN IV PAIN; Start 07/08/19 at 18:45; Stop 07/13/19 at 18:44; Status UNV Active Scripts Active Flagyl (Metronidazole) 500 Mg Tablet 1 Tab PO BID Exam Abd: soft, mild tenderness, fundus firm INcision site: clean, dry and intact Assessment POD#2 s/p repeat c/s Plan of Care: Continue current Tx, Mgmt JOVANY BEARD Jr, MD Jul 10, 2019 08:33
[2019-07-10 10:55] VITALS: BP 90/45
[2019-07-10 15:00] VITALS: BP 103/59
[2019-07-10 19:20] VITALS: BP 100/59
[2019-07-10] MEDS ORDERED: MAGNESIUM HYDROXIDE 2,400 MG/30 ML ORAL.SUSP. PO PRN (21:00)
[2019-07-11] MEDS: oxyCODONE/APAP 5/325 1 TAB TABLET PO PRN ×5 (01:21→20:05)
[2019-07-11 05:15] VITALS: BP 107/76
[2019-07-11] MEDS: IBUPROFEN 400 MG TABLET. PO PRN ×2 (05:16→15:26)
[2019-07-11] MEDS: DOCUSATE SODIUM 100 MG CAPSULE. PO PRN ×2 (05:17→20:07)
[2019-07-11 07:00] VITALS: BP 102/59
--- NOTE | 2019-07-11 09:57 | PDOC3 ---
OB DISCHARGE SUMMARY DATE OF ADMISSION: 07/08/19 DATE OF DISCHARGE: 07/11/19 REASON FOR ADMISSION: section INTRAPARTUM PROCEDURES: : Low Cerv Trans DISCHARGE DIAGNOSIS: Term Delivered DISCHARGE INFORMATION: Activity (ad michael), Diet (regular), Instructions (pelvic rest x 6 wks, no driving x 2 wks, no lifting> 20 lbs. x 6 wks) HOSPITAL COURSE Term gestation delivered section without complications. JOVANY BEARD Jr, MD Jul 11, 2019 09:57
[2019-07-11] MEDS ORDERED: IBUP-1027 PO (09:59)
[2019-07-11] MEDS ORDERED: OXYC1TAB15 PO (09:59)
[2019-07-11] MEDS ORDERED: DOCU-153 PO (09:59)
--- NOTE | 2019-07-11 10:00 | DISCH ---
DISCHARGE INSTRUCTIONS Condition on Discharge Condition on Discharge: Stable Activity After Discharge Activity Instructions for Disc: Activity as tolerated Lifting Instructions after Dis: No heavy lifting Driving Instructions after Dis: No driving for 2 weeks Diet after Discharge Diet after Discharge: Regular Contacting the DRFarzaneh after DC Call your doctor for: Concerns you may have Follow-Up Follow up with: Dr. Lowe in 2 wks JOVANY LOWE Jr, MD Jul 11, 2019 09:59
--- NOTE | 2019-07-11 15:00 | NUR ---
This RN at bs after answering call light. Pt states she "feels very bad". Pt has the chills and is shaking. She feels hot to touch. Vital signs taken and temp 103 F orally. fundal assessment done and abd area very tender to touch. Findings charted and Report then given to Griffin Golden RN. RN then back to bedside and assisted with pumping and care.
[2019-07-11 15:10] VITALS: BP 125/68
--- NOTE | 2019-07-11 15:20 | NUR ---
Nursing Note: Dr. Lowe contacted, notified of Pt. c/o of feeling hot, chilled, and temperature of 103.0, HR 120, BP 125/68. Discussed Pt. milk supply being in, Pt. attempting to breast feed, and then uses breast pump. Dr. Lowe also notified of Kristy Donohue RNspecial agent in charge of Pt.'s abdomen being tender to palpation during her RN fundal check. Order received to discontinue discharge order, see new orders. Kristy Burgos RN in nursery notified.
[2019-07-11 16:10] VITALS: BP 118/70
[2019-07-11] MEDS: PIPERACILLIN/TAZOBACTAM 3.375 GM in IV NORMAL SALINE 50ML 50 ML IV SCH ×2 (17:10→22:44)
[2019-07-11] MEDS ORDERED: IV RINGERS,LACTATED 1000ML 1,000 ML IV ONE (17:15)
[2019-07-11 17:37] LABS: INFLUENZA A PATIENT NEGATIVE (NEGATIVE); INFLUENZA B PATIENT NEGATIVE (NEGATIVE)
[2019-07-11 17:47] LABS: BILIRUBIN,URINE NEGATIVE (NEG); CLARITY,URINE CLEAR; NITRITE,URINE NEGATIVE (NEG); PROTEIN,URINE 30 mg/dL (NEG-TRACE); UROBILINOGEN,URINE 0.2 mg/dL (0.2 mg/dL)
[2019-07-11 17:52] LABS: COLOR,URINE PINK
[2019-07-11 17:54] LABS: BACTERIA,URINE 0 /HPF (0-FEW); RBC,URINE TNTC /HPF (0-2); SQUAMOUS EPITHELIAL CELL,UR MANY /LPF; WBC,URINE TNTC /HPF (0-4)
[2019-07-11 22:30] VITALS: BP 106/59
[2019-07-12] MEDS: IBUPROFEN 400 MG TABLET. PO PRN ×3 (00:11→18:35)
[2019-07-12] MEDS: oxyCODONE/APAP 5/325 1 TAB TABLET PO PRN ×3 (00:12→14:52)
[2019-07-12 03:50] VITALS: BP 103/64
[2019-07-12] MEDS: PIPERACILLIN/TAZOBACTAM 3.375 GM in IV NORMAL SALINE 50ML 50 ML IV SCH ×3 (05:00→18:35)
[2019-07-12 06:57] LABS: BASO % 0 % (0-3); EOS # 0.3 x10^3/uL (0.0-0.7); EOS % 5 % (0-3); HEMATOCRIT 28.7 % (36.0-47.0); HEMOGLOBIN 9.5 g/dL (12.0-15.5); LYMPH # 1.6 x10^3/uL (1.0-4.8); LYMPH % 30 % (24-48); MEAN CORPUSCULAR HEMOGLOBIN 29 pg (25-35); MEAN CORPUSCULAR HGB CONC 33 g/dL (31-37); MEAN CORPUSCULAR VOLUME 86 fL (79-100); MONO # 0.3 x10^3/uL (0.0-1.1); MONO % 6 % (0-9); NEUT # 3.1 x10^3/uL (1.8-7.7); NEUT % 58 % (31-73); PLATELET COUNT 236 x10^3/uL (140-400); RED BLOOD COUNT 3.33 x10^6/uL (3.50-5.40); RED CELL DISTRIBUTION WIDTH 14.3 % (11.5-14.5); WHITE BLOOD COUNT 5.4 x10^3/uL (4.0-11.0)
--- NOTE | 2019-07-12 09:22 | PDOC ---
OB Progress Note Date of Service 07/12/19 Time of Evaluation 0920 Notes Pt. had fever 103 'F, severe abd tenderness to palpation and breast engorgement. She was started on Zosyn IV. Tmax last 24 hours 100.1'F. She feels better today with less breast engorgement and abd less tender. Lab Laboratory Tests Test 07/11/19 17:00 07/11/19 17:05 07/12/19 05:53 Urine Collection Type Unknown Urine Color [place] Urine Clarity Clear Urine pH 8.0 Urine Specific [place] 1.015 Urine Protein 30 mg/dL (NEG-TRACE) Urine Glucose (UA) Negative mg/dL (NEG) Urine Ketones (Stick) Negative mg/dL (NEG) Urine Blood Large (NEG) Urine Nitrite Negative (NEG) Urine Bilirubin Negative (NEG) Urine Urobilinogen Dipstick 0.2 mg/dL (0.2 mg/dL) Urine Leukocyte Esterase Large (NEG) Urine RBC Tntc /HPF (0-2) Urine WBC Tntc /HPF (0-4) Urine Squamous Epithelial Cells Many /LPF Urine Bacteria 0 /HPF (0-FEW) Influenza Type A Antigen Negative (NEGATIVE) Influenza Type B Antigen Negative (NEGATIVE) White Blood Count 5.4 x10^3/uL (4.0-11.0) Red Blood Count 3.33 x10^6/uL (3.50-5.40) Hemoglobin 9.5 g/dL (12.0-15.5) Hematocrit 28.7 % (36.0-47.0) Mean Corpuscular Volume 86 fL (79-100) Mean Corpuscular Hemoglobin 29 pg (25-35) Mean Corpuscular Hemoglobin Concent 33 g/dL (31-37) Red Cell Distribution Width 14.3 % (11.5-14.5) Platelet Count 236 x10^3/uL (140-400) Neutrophils (%) (Auto) 58 % (31-73) Lymphocytes (%) (Auto) 30 % (24-48) Monocytes (%) (Auto) 6 % (0-9) Eosinophils (%) (Auto) 5 % (0-3) Basophils (%) (Auto) 0 % (0-3) Neutrophils # (Auto) 3.1 x10^3/uL (1.8-7.7) Lymphocytes # (Auto) 1.6 x10^3/uL (1.0-4.8) Monocytes # (Auto) 0.3 x10^3/uL (0.0-1.1) Eosinophils # (Auto) 0.3 x10^3/uL (0.0-0.7) Basophils # (Auto) 0.0 x10^3/uL (0.0-0.2) Laboratory Tests Test 07/11/19 17:00 07/11/19 17:05 07/12/19 05:53 Urine Collection Type Unknown Urine Color [place] Urine Clarity Clear Urine pH 8.0 Urine Specific [place] 1.015 Urine Protein 30 mg/dL (NEG-TRACE) Urine Glucose (UA) Negative mg/dL (NEG) Urine Ketones (Stick) Negative mg/dL (NEG) Urine Blood Large (NEG) Urine Nitrite Negative (NEG) Urine Bilirubin Negative (NEG) Urine Urobilinogen Dipstick 0.2 mg/dL (0.2 mg/dL) Urine Leukocyte Esterase Large (NEG) Urine RBC Tntc /HPF (0-2) Urine WBC Tntc /HPF (0-4) Urine Squamous Epithelial Cells Many /LPF Urine Bacteria 0 /HPF (0-FEW) Influenza Type A Antigen Negative (NEGATIVE) Influenza Type B Antigen Negative (NEGATIVE) White Blood Count 5.4 x10^3/uL (4.0-11.0) Red Blood Count 3.33 x10^6/uL (3.50-5.40) Hemoglobin 9.5 g/dL (12.0-15.5) Hematocrit 28.7 % (36.0-47.0) Mean Corpuscular Volume 86 fL (79-100) Mean Corpuscular Hemoglobin 29 pg (25-35) Mean Corpuscular Hemoglobin Concent 33 g/dL (31-37) Red Cell Distribution Width 14.3 % (11.5-14.5) Platelet Count 236 x10^3/uL (140-400) Neutrophils (%) (Auto) 58 % (31-73) Lymphocytes (%) (Auto) 30 % (24-48) Monocytes (%) (Auto) 6 % (0-9) Eosinophils (%) (Auto) 5 % (0-3) Basophils (%) (Auto) 0 % (0-3) Neutrophils # (Auto) 3.1 x10^3/uL (1.8-7.7) Lymphocytes # (Auto) 1.6 x10^3/uL (1.0-4.8) Monocytes # (Auto) 0.3 x10^3/uL (0.0-1.1) Eosinophils # (Auto) 0.3 x10^3/uL (0.0-0.7) Basophils # (Auto) 0.0 x10^3/uL (0.0-0.2) Medications Current Medications Ringer's Solution 1,000 ml @ 1,000 mls/hr Q1H IV Last administered on 07/08/19at 08:49; Start 07/08/19 at 07:00; Stop 07/08/19 at 07:59; Status DC Ringer's Solution 1,000 ml @ 125 mls/hr Q8H IV Last administered on 07/09/19at 01:29; Start 07/08/19 at 07:00; Stop 07/10/19 at 00:43; Status DC Cefazolin Sodium/ Dextrose 50 ml @ 100 mls/hr 1X ONCE IV Last administered on 07/08/19at 08:49; Start 07/08/19 at 07:00; Stop 07/08/19 at 16:42; Status DC Citric Acid/ Sodium Citrate (Bicitra) 30 ml 1X ONCE PO Last administered on 07/08/19at 08:49; Start 07/08/19 at 07:00; Stop 07/08/19 at 16:43; Status DC Ephedrine Sulfate (ePHEDrine PF IN SALINE SYRINGE) 50 mg STK-MED ONCE IV ; Start 07/08/19 at 09:47; Stop 07/08/19 at 09:48; Status DC Phenylephrine HCl (PHENYLEPHRINE in 0.9% NACL PF) 1 mg STK-MED ONCE IV ; Start 07/08/19 at 09:47; Stop 07/08/19 at 09:48; Status DC Oxytocin (Pitocin) 10 unit STK-MED ONCE .ROUTE ; Start 07/08/19 at 09:47; Stop 07/08/19 at 09:48; Status DC Ondansetron HCl (Zofran) 4 mg STK-MED ONCE .ROUTE ; Start 07/08/19 at 09:48; Stop 07/08/19 at 09:49; Status DC Famotidine (Pepcid Vial) 20 mg STK-MED ONCE .ROUTE ; Start 07/08/19 at 09:48; Stop 07/08/19 at 09:49; Status DC Metoclopramide HCl (Reglan Vial) 10 mg STK-MED ONCE .ROUTE ; Start 07/08/19 at 09:48; Stop 07/08/19 at 09:49; Status DC Morphine Sulfate (Morphine Preservative Free) 10 mg STK-MED ONCE .ROUTE ; Start 07/08/19 at 09:49; Stop 07/08/19 at 09:49; Status DC Fentanyl Citrate (Fentanyl 2ml Vial) 100 mcg STK-MED ONCE .ROUTE ; Start 07/08/19 at 09:49; Stop 07/08/19 at 09:49; Status DC Sodium Chloride (Normal Saline Flush) 3 ml QSHIFT PRN IV AFTER MEDS AND BLOOD DRAWS; Start 07/08/19 at 12:30 Oxytocin/Sodium Chloride 500 ml @ 125 mls/hr CONT PRN IV EXCESSIVE POST- BLEEDING; Start 07/08/19 at 12:30; Stop 07/08/19 at 20:29; Status DC Ibuprofen (Motrin) 800 mg PRN Q8HRS PRN PO INFLAMMATION Last administered on 07/12/19at 00:11; Start 07/08/19 at 12:30 Ondansetron HCl (Zofran) 4 mg PRN Q6HRS PRN IV NAUSEA/VOMITING; Start 07/08/19 at 12:30 Docusate Sodium (Colace) 100 mg PRN BID PRN PO CONSTIPATION Last administered on 07/11/19at 20:07; Start 07/08/19 at 12:30 Al Hydroxide/Mg Hydroxide (Mylanta Plus Xs) 30 ml PRN Q4HRS PRN PO HEARTBURN / GAS; Start 07/08/19 at 12:30 Simethicone (Gas-X) 80 mg PRN AFTMEALHC PRN PO GAS / BLOATING Last administered on 07/09/19at 17:43; Start 07/08/19 at 12:30 Diphenhydramine HCl (Benadryl Oral Elixir) 12.5 mg PRN Q6HRS PRN PO ITCHING Last administered on 07/08/19at 20:51; Start 07/08/19 at 12:30 Ferrous Sulfate (Feosol) 325 mg BIDWMEALS PO Last administered on 07/10/19at 18:43; Start 07/08/19 at 17:00 Zolpidem Tartrate (Ambien) 5 mg PRN QHS PRN PO INSOMNIA, MAY REPEAT X1; Start 07/08/19 at 12:30 Oxycodone/ Acetaminophen (Percocet 5/325) 2 tab PRN Q4HRS PRN PO MODERATE PAIN, SEVERE PAIN Last administered on 07/12/19at 05:17; Start 07/08/19 at 12:30 Ketorolac Tromethamine (Toradol 30mg Vial) 30 mg PRN Q6HRS PRN IV PAIN Last administered on 07/09/19at 04:52; Start 07/08/19 at 12:30; Stop 07/13/19 at 12:29 Misoprostol (Cytotec 200mcg Tab) 200 mcg STK-MED ONCE .ROUTE ; Start 07/08/19 at 12:26; Stop 07/08/19 at 12:26; Status DC Diphenhydramine HCl (Benadryl) 12.5 mg PRN Q6HRS PRN IVP ITCHING; Start 07/08/19 at 13:15 Ketorolac Tromethamine (Toradol 30mg Vial) 30 mg PRN Q6HRS PRN IV PAIN; Start 07/08/19 at 18:45; Stop 07/13/19 at 18:44; Status UNV Magnesium Hydroxide (Milk Of Magnesia) 2,400 mg PRN DAILY PRN PO CONSTIPATION Last administered on 07/10/19at 21:57; Start 07/10/19 at 21:00 Piperacillin Sod/ Tazobactam Sod 3.375 gm/Sodium Chloride 50 ml @ 100 mls/hr Q6HRS IV Last administered on 07/12/19at 05:00; Start 07/11/19 at 17:00 Ringer's Solution 1,000 ml @ 125 mls/hr 1X ONCE IV Last administered on 07/11/19at 17:08; Start 07/11/19 at 17:15; Stop 07/12/19 at 01:14; Status DC Active Scripts Active Dok (Docusate Sodium) 100 Mg Capsule 100 Mg PO PRN BID PRN Percocet 5-325 Mg Tablet (Oxycodone/Acetaminophen) 1 Each Tablet 2 Tab PO PRN Q4HRS PRN Ibuprofen 400 Mg Tablet 800 Mg PO PRN Q8HRS PRN Flagyl (Metronidazole) 500 Mg Tablet 1 Tab PO BID Exam Abd: soft, mild tenderness, fundus firm Incision site: clean, dry and intact Assessment POD#4 s/p repeat c/s Post Endometritis Breast Engorgement Plan of Care: Continue current Tx, Mgmt (Anticipate d/c home tomorrow if remains afebrile.) JOVANY BEARD Jr, MD Jul 12, 2019 09:22
[2019-07-12] MEDS: DOCUSATE SODIUM 100 MG CAPSULE. PO PRN ×2 (09:31→18:36)
[2019-07-12] MEDS: FERROUS SULFATE 325 MG TABLET. PO SCH ×2 (09:32→18:36)
[2019-07-12 09:44] VITALS: BP 97/81
[2019-07-12 14:54] VITALS: BP 121/72
[2019-07-12 17:12] VITALS: BP 112/75
[2019-07-12 20:00] VITALS: BP 112/64
[2019-07-13 01:00] VITALS: BP 118/75
[2019-07-13] MEDS: oxyCODONE/APAP 5/325 1 TAB TABLET PO PRN ×2 (01:11→07:59)
[2019-07-13] MEDS: IBUPROFEN 400 MG TABLET. PO PRN ×2 (01:12→10:46)
[2019-07-13] MEDS: PIPERACILLIN/TAZOBACTAM 3.375 GM in IV NORMAL SALINE 50ML 50 ML IV SCH ×2 (01:40→07:59)
[2019-07-13 06:32] VITALS: BP 96/58
[2019-07-13] MEDS: DOCUSATE SODIUM 100 MG CAPSULE. PO PRN (07:59)
[2019-07-13] MEDS: FERROUS SULFATE 325 MG TABLET. PO SCH (07:59)
[2019-07-13] MEDS ORDERED: OXYC1TAB15 PO (08:40)
[2019-07-13] MEDS ORDERED: FERR325T14 PO (08:41)
--- NOTE | 2019-07-13 08:44 | PDOC ---
PROGRESS NOTES Subjective Subjective Pt feels good. Callie PO. Voiding. Minimal lochia. Denies f/c Objective Objective Vital Signs Date Time Temp Pulse Resp B/P (MAP) Pulse Ox O2 Delivery O2 Flow Rate FiO2 07/13/19 07:59 Room Air 07/13/19 06:32 99.0 62 15 96/58 (71) 97 99.0 Physical Exam Physical Exam Tm 99.4 Tc 99.0 FFNT below umb No C/C/E Assessment Assessment A/P 29y POD #5 s/p RLTCS 1.) PO doing well 2.) endometritis Zoysn Day #3, last fever 100.1 on 07/12/19, WBC 5.4 (prior to surgery) -> 6.0 -> 5.4 3.) Breast Engorgement pumping 4.) Anemia - Hgb 11.2 -> 9.4, on Fe BID 5.) D/C home Comment Review of Relevant I have reviewed the following items guero (where applicable) has been applied. Labs Laboratory Tests Test 07/11/19 17:00 07/11/19 17:05 07/12/19 05:53 Urine Collection Type Unknown Urine Color [place] Urine Clarity Clear Urine pH 8.0 Urine Specific [place] 1.015 Urine Protein 30 mg/dL (NEG-TRACE) Urine Glucose (UA) Negative mg/dL (NEG) Urine Ketones (Stick) Negative mg/dL (NEG) Urine Blood Large (NEG) Urine Nitrite Negative (NEG) Urine Bilirubin Negative (NEG) Urine Urobilinogen Dipstick 0.2 mg/dL (0.2 mg/dL) Urine Leukocyte Esterase Large (NEG) Urine RBC Tntc /HPF (0-2) Urine WBC Tntc /HPF (0-4) Urine Squamous Epithelial Cells Many /LPF Urine Bacteria 0 /HPF (0-FEW) Influenza Type A Antigen Negative (NEGATIVE) Influenza Type B Antigen Negative (NEGATIVE) White Blood Count 5.4 x10^3/uL (4.0-11.0) Red Blood Count 3.33 x10^6/uL (3.50-5.40) Hemoglobin 9.5 g/dL (12.0-15.5) Hematocrit 28.7 % (36.0-47.0) Mean Corpuscular Volume 86 fL (79-100) Mean Corpuscular Hemoglobin 29 pg (25-35) Mean Corpuscular Hemoglobin Concent 33 g/dL (31-37) Red Cell Distribution Width 14.3 % (11.5-14.5) Platelet Count 236 x10^3/uL (140-400) Neutrophils (%) (Auto) 58 % (31-73) Lymphocytes (%) (Auto) 30 % (24-48) Monocytes (%) (Auto) 6 % (0-9) Eosinophils (%) (Auto) 5 % (0-3) Basophils (%) (Auto) 0 % (0-3) Neutrophils # (Auto) 3.1 x10^3/uL (1.8-7.7) Lymphocytes # (Auto) 1.6 x10^3/uL (1.0-4.8) Monocytes # (Auto) 0.3 x10^3/uL (0.0-1.1) Eosinophils # (Auto) 0.3 x10^3/uL (0.0-0.7) Basophils # (Auto) 0.0 x10^3/uL (0.0-0.2) Microbiology 07/11/19 Blood Culture - Preliminary, Resulted NO GROWTH AFTER 1 DAY 07/08/19 Urine Culture - Final, Complete 07/08/19 Urine Culture Result 1 (WANG) - Final, Complete Medications Current Medications Ringer's Solution 1,000 ml @ 1,000 mls/hr Q1H IV Last administered on 07/08/19at 08:49; Start 07/08/19 at 07:00; Stop 07/08/19 at 07:59; Status DC Ringer's Solution 1,000 ml @ 125 mls/hr Q8H IV Last administered on 07/09/19at 01:29; Start 07/08/19 at 07:00; Stop 07/10/19 at 00:43; Status DC Cefazolin Sodium/ Dextrose 50 ml @ 100 mls/hr 1X ONCE IV Last administered on 07/08/19at 08:49; Start 07/08/19 at 07:00; Stop 07/08/19 at 16:42; Status DC Citric Acid/ Sodium Citrate (Bicitra) 30 ml 1X ONCE PO Last administered on 07/08/19at 08:49; Start 07/08/19 at 07:00; Stop 07/08/19 at 16:43; Status DC Ephedrine Sulfate (ePHEDrine PF IN SALINE SYRINGE) 50 mg STK-MED ONCE IV ; Start 07/08/19 at 09:47; Stop 07/08/19 at 09:48; Status DC Phenylephrine HCl (PHENYLEPHRINE in 0.9% NACL PF) 1 mg STK-MED ONCE IV ; Start 07/08/19 at 09:47; Stop 07/08/19 at 09:48; Status DC Oxytocin (Pitocin) 10 unit STK-MED ONCE .ROUTE ; Start 07/08/19 at 09:47; Stop 07/08/19 at 09:48; Status DC Ondansetron HCl (Zofran) 4 mg STK-MED ONCE .ROUTE ; Start 07/08/19 at 09:48; Stop 07/08/19 at 09:49; Status DC Famotidine (Pepcid Vial) 20 mg STK-MED ONCE .ROUTE ; Start 07/08/19 at 09:48; Stop 07/08/19 at 09:49; Status DC Metoclopramide HCl (Reglan Vial) 10 mg STK-MED ONCE .ROUTE ; Start 07/08/19 at 09:48; Stop 07/08/19 at 09:49; Status DC Morphine Sulfate (Morphine Preservative Free) 10 mg STK-MED ONCE .ROUTE ; Start 07/08/19 at 09:49; Stop 07/08/19 at 09:49; Status DC Fentanyl Citrate (Fentanyl 2ml Vial) 100 mcg STK-MED ONCE .ROUTE ; Start 07/08/19 at 09:49; Stop 07/08/19 at 09:49; Status DC Sodium Chloride (Normal Saline Flush) 3 ml QSHIFT PRN IV AFTER MEDS AND BLOOD DRAWS; Start 07/08/19 at 12:30 Oxytocin/Sodium Chloride 500 ml @ 125 mls/hr CONT PRN IV EXCESSIVE POST- BLEEDING; Start 07/08/19 at 12:30; Stop 07/08/19 at 20:29; Status DC Ibuprofen (Motrin) 800 mg PRN Q8HRS PRN PO INFLAMMATION Last administered on 07/13/19at 01:12; Start 07/08/19 at 12:30 Ondansetron HCl (Zofran) 4 mg PRN Q6HRS PRN IV NAUSEA/VOMITING; Start 07/08/19 at 12:30 Docusate Sodium (Colace) 100 mg PRN BID PRN PO CONSTIPATION Last administered on 07/13/19at 07:59; Start 07/08/19 at 12:30 Al Hydroxide/Mg Hydroxide (Mylanta Plus Xs) 30 ml PRN Q4HRS PRN PO HEARTBURN / GAS; Start 07/08/19 at 12:30 Simethicone (Gas-X) 80 mg PRN AFTMEALHC PRN PO GAS / BLOATING Last administered on 07/09/19at 17:43; Start 07/08/19 at 12:30 Diphenhydramine HCl (Benadryl Oral Elixir) 12.5 mg PRN Q6HRS PRN PO ITCHING Last administered on 07/08/19at 20:51; Start 07/08/19 at 12:30 Ferrous Sulfate (Feosol) 325 mg BIDWMEALS PO Last administered on 07/13/19at 07:59; Start 07/08/19 at 17:00 Zolpidem Tartrate (Ambien) 5 mg PRN QHS PRN PO INSOMNIA, MAY REPEAT X1; Start 07/08/19 at 12:30 Oxycodone/ Acetaminophen (Percocet 5/325) 2 tab PRN Q4HRS PRN PO MODERATE PAIN, SEVERE PAIN Last administered on 07/13/19at 07:59; Start 07/08/19 at 12:30 Ketorolac Tromethamine (Toradol 30mg Vial) 30 mg PRN Q6HRS PRN IV PAIN Last administered on 07/09/19at 04:52; Start 07/08/19 at 12:30; Stop 07/13/19 at 12:29 Misoprostol (Cytotec 200mcg Tab) 200 mcg STK-MED ONCE .ROUTE ; Start 07/08/19 at 12:26; Stop 07/08/19 at 12:26; Status DC Diphenhydramine HCl (Benadryl) 12.5 mg PRN Q6HRS PRN IVP ITCHING; Start 07/08/19 at 13:15 Ketorolac Tromethamine (Toradol 30mg Vial) 30 mg PRN Q6HRS PRN IV PAIN; Start 07/08/19 at 18:45; Stop 07/13/19 at 18:44; Status UNV Magnesium Hydroxide (Milk Of Magnesia) 2,400 mg PRN DAILY PRN PO CONSTIPATION Last administered on 07/10/19at 21:57; Start 07/10/19 at 21:00 Piperacillin Sod/ Tazobactam Sod 3.375 gm/Sodium Chloride 50 ml @ 100 mls/hr Q6HRS IV Last administered on 07/13/19at 07:59; Start 07/11/19 at 17:00 Ringer's Solution 1,000 ml @ 125 mls/hr 1X ONCE IV Last administered on 07/11/19at 17:08; Start 07/11/19 at 17:15; Stop 07/12/19 at 01:14; Status DC Active Scripts Active Ferrous Sulfate 325 Mg Tablet 1 Tab PO BID Percocet 5-325 Mg Tablet (Oxycodone/Acetaminophen) 1 Each Tablet 1 Tab PO PRN Q6HRS PRN Dok (Docusate Sodium) 100 Mg Capsule 100 Mg PO PRN BID PRN Percocet 5-325 Mg Tablet (Oxycodone/Acetaminophen) 1 Each Tablet 2 Tab PO PRN Q4HRS PRN Ibuprofen 400 Mg Tablet 800 Mg PO PRN Q8HRS PRN Flagyl (Metronidazole) 500 Mg Tablet 1 Tab PO BID Vitals/I & O Vital Sign - Last 24 Hours 07/12/19 07/12/19 07/12/19 07/12/19 09:44 14:52 14:54 17:12 Temp 98.0 98.1 98.3 98.0 98.1 98.3 Pulse 86 97 83 Resp 18 18 B/P (MAP) 97/81 (86) 121/72 (88) 112/75 (87) Pulse Ox 97 97 98 O2 Delivery Room Air Room Air Room Air Room Air 07/12/19 07/12/19 07/13/19 07/13/19 20:00 20:00 01:00 01:11 Temp 99.4 98.6 99.4 98.6 Pulse 80 78 Resp 20 16 18 B/P (MAP) 112/64 (80) 118/75 (89) Pulse Ox 98 98 98 O2 Delivery Room Air Room Air Room Air Room Air 07/13/19 07/13/19 07/13/19 02:11 06:32 07:59 Temp 99.0 99.0 Pulse 62 Resp 15 15 B/P (MAP) 96/58 (71) Pulse Ox 97 O2 Delivery Room Air Room Air Room Air AJ QUINN MD Jul 13, 2019 08:44
[2019-07-13 12:45] VITALS: BP 111/58
--- NOTE | 2019-07-13 13:00 | NUR ---
Discharge Note: BENNIE RENDON DRIVER Discharge instructions and discharge home medications reviewed with Patient and a copy given. All questions have been answered and understanding verbalized. Follow up appointments reviewed and understanding verbalized. The following instructions and handouts were given: Discharge Instructions Post Patients. [facility] Patient Discharge Instruction Sheet and Medication Schedule. Peripheral IV removed from right hand. No complications. Patient discharged to home with self-care via ambulation to private vehicle.
== END 2019-07-13 13:00 | disposition home or self-care (01) | DRG 787 ==
LOC: 3 SO LND 06:37 → 3 NORTH 15:49
PROVIDERS: ADMIT Obstetrics & Gynecology; ATTEND Obstetrics & Gynecology
PROC: 10D00Z1 Extraction of Products of Conception, Low, Open Approach (ICD-10-PCS; principal; 2019-07-08)
DX: O34.211 Maternal care for low transverse scar from previous cesarean delivery (principal); O86.12 Endometritis following delivery; O77.0 Labor and delivery complicated by meconium in amniotic fluid; N64.59 Other signs and symptoms in breast; D64.9 Anemia, unspecified; O99.02 Anemia complicating childbirth; Z37.0 Single live birth; Z3A.39 39 weeks gestation of pregnancy
CPT/HCPCS: 36415; 81001; 85025; 86592; 86850; 86900; 86901; 87040; 87086; 87804; J0171; J0696; J1885; J2274; J2370; J2405; J2543; J2590; J2765; J3010; J3490; J7120; G0378